=== PATIENT | male | born 1985 | race Two or more races ===

== ENCOUNTER 2020-08-20 20:29 | Inpatient (IN) | payer MEDICAID ==
[~2020-08-20] VITALS: Ht 177.8 cm; Wt 142.5 kg
[2020-08-20] MEDS ORDERED: cefTRIAXone 1GM/50ML D5W 50 ML IV ONE (23:30)
[2020-08-20] MEDS ORDERED: metroNIDAZOLE 500MG/100ML 100 ML IV ONE (23:30)
[2020-08-20] MEDS ORDERED: SODIUM CHLORIDE 0.9% 1,000 ML IV ONE (23:30)
[2020-08-20] MEDS ORDERED: ACETAMINOPHEN 325 MG TAB PO ONE (23:45)
[2020-08-21 00:03] LABS: Hemoglobin 16.5 g/dL (13.5-17.5)
[2020-08-21 00:04] LABS: Basophils # (auto) 0 10 ^3/uL (0-0.2); Basophils % (auto) 0.4 % (0.0-2.0); Eosinophils # (auto) 0 10 ^3/uL (0-0.8); Eosinophils % (auto) 0.2 % (0.0-7.0); Hematocrit 49.7 % (41.0-53.0); Lymphocytes # (auto) 1.8 10 ^3/uL (0.4-5.4); Lymphocytes % (auto) 27.1 % (10.0-50.0); Mean Corpuscular Hemoglobin 27.6 pg (28.0-32.0); Mean Corpuscular Hgb Conc. 33.2 g/dL (32.0-36.0); Mean Corpuscular Volume 83.2 fL (80.0-100.0); Monocytes # (auto) 0.8 10 ^3/uL (0-1.3); Monocytes % (auto) 12.9 % (0.0-12.0); Neutrophils # (auto) 3.9 10 ^3/uL (1.6-8.6); Neutrophils % (auto) 59.4 % (37.0-80.0); Nucleated Red Blood Cells % 0.2 %; Platelet Count (auto) 247 10^3/uL (140-450); Red Blood Cells 5.97 10^6/uL (4.5-5.90); White Blood Cell 6.6 10^3/uL (4.4-10.8)
[2020-08-21 00:07] LABS: Urine Bacteria NONE SEEN /hpf (None Seen); Urine Blood 1+ /uL (Negative); Urine WBC 4 /hpf (0 - 3)
[2020-08-21 00:17] LABS: Alanine Aminotransferase 45 U/L (16-61); Albumin 3.6 g/dL (3.4-5.0); Amylase 52 U/L (25-115); Anion Gap 7 (5-15); Aspartate Aminotransferase 26 U/L (15-37); BUN/Creatinine Ratio 9.5; Blood Urea Nitrogen 10 mg/dL (7-18); Calcium 8.6 mg/dL (8.5-10.1); Carbon Dioxide 26 mmol/L (21-32); Chloride 104 mmol/L (98-107); GFR African American 104 mL/min; GFR Non-African American 86 mL/min; Glucose 85 mg/dL (74-106); Lipase 108 U/L (73-393); Potassium 3.8 mmol/L (3.5-5.1); Sodium 137 mmol/L (136-145)
[2020-08-21 00:24] LABS: Alkaline Phosphatase 124 U/L (45-117); Bilirubin, Total 0.4 mg/dL (0.2-1.0); Total Protein 8.8 g/dL (6.4-8.2)
[2020-08-21] MEDS ORDERED: NITROGLYCERIN 0.4 MG SL TAB SL PRN (01:15)
[2020-08-21] MEDS ORDERED: DexAMETHasone SOD PHOS 4 MG/1ML SDV INJ IV ONE (01:15)
[2020-08-21] MEDS ORDERED: ACETAMINOPHEN 500 MG TAB PO PRN (01:15)
[2020-08-21] MEDS ORDERED: MORPHINE SULF INJ 2 MG/ML SYRINGE 1ML IV PRN (01:15)
[2020-08-21 02:45] VITALS: BP 111/63
--- NOTE | 2020-08-21 02:45 | NUR ---
pt arrived via wheelchair. pt is ambulatory, and transferred self to hospital bed. no s/s of pain or distress.
--- NOTE | 2020-08-21 07:13 | NUR ---
closing note pt resting in right lateral position. no s/s of pain or respiratory distress. endorsed care to day shift RN.
[2020-08-21 07:44] LABS: Basophils # (auto) 0 10 ^3/uL (0-0.2); Basophils % (auto) 0.1 % (0.0-2.0); Eosinophils # (auto) 0 10 ^3/uL (0-0.8); Hemoglobin 15.3 g/dL (13.5-17.5); Lymphocytes % (auto) 17.5 % (10.0-50.0); Mean Corpuscular Hemoglobin 27.2 pg (28.0-32.0); Mean Corpuscular Hgb Conc. 32.5 g/dL (32.0-36.0); Mean Corpuscular Volume 83.6 fL (80.0-100.0); Monocytes # (auto) 0.5 10 ^3/uL (0-1.3); Monocytes % (auto) 8.5 % (0.0-12.0); Neutrophils # (auto) 4.1 10 ^3/uL (1.6-8.6); Neutrophils % (auto) 73.9 % (37.0-80.0); Nucleated Red Blood Cells % 0.1 %; Platelet Count (auto) 223 10^3/uL (140-450); Red Blood Cells 5.62 10^6/uL (4.5-5.90); White Blood Cell 5.5 10^3/uL (4.4-10.8)
[2020-08-21 08:00] VITALS: BP 102/52
[2020-08-21 08:00] LABS: Albumin 3.4 g/dL (3.4-5.0); BUN/Creatinine Ratio 8.4; Calcium 8.4 mg/dL (8.5-10.1); Potassium 4.6 mmol/L (3.5-5.1)
--- NOTE | 2020-08-21 08:00 | NUR ---
Opening Shift Note Assumed care of patient, awake and alertx4. No S/S of distress/SOB, on room air. No pain. Instructed on POC and to call for assist PRN. Bed at lowest locked position and call light within reach. Will continue to monitor for changes Q1hr and PRN.
[2020-08-21 08:03] LABS: Bilirubin, Total 0.4 mg/dL (0.2-1.0); Total Protein 7.9 g/dL (6.4-8.2)
--- NOTE | 2020-08-21 08:27 | NUR ---
Respiratory note: PT IS AWAKE, AND ALERT. NO RESPIRATORY DISTRESS NOTED. SPO2 96% ON RA, HR 88, RR 18, BS CLEAR/DIMINISHED BILATERALLY. NO FURTHER RESPIRATORY INTERVENTIONS INDICATED AT THIS TIME. WILL CONTINUE TO MONITOR PT. CHARTING COMPLETE FROM OUTSIDE OF PT ROOM PER COVID-19 PRECAUTIONS/PROTOCOL.
[2020-08-21] MEDS: AZITHROMYCIN 500MG/ 250ML 250 ML IV SCH (08:38)
[2020-08-21 09:00] VITALS: BP 102/52
--- NOTE | 2020-08-21 09:00 | NUR ---
Bowel Movement Patient had a soft BM, no diarrhea.
[2020-08-21] MEDS: MORPHINE SULF INJ 2 MG/ML SYRINGE 1ML IV PRN ×3 (09:03→22:20)
--- NOTE | 2020-08-21 09:03 | NUR ---
Pain Pain medication given for back and chest pain, 05/17. Will continue to monitor PRN.
--- NOTE | 2020-08-21 09:35 | NUR ---
Pain re-assessment No c/o pain. Patient is comfortably resting.
[2020-08-21] MEDS ORDERED: DexAMETHasone SOD PHOS 4 MG/1ML SDV INJ IV SCH (10:00)
[2020-08-21 13:00] VITALS: BP 124/74
--- NOTE | 2020-08-21 16:37 | NUR ---
Pain Pain medication given for headache, 07/18. Will continue to monitor PRN.
[2020-08-21 17:12] VITALS: BP 121/73
--- NOTE | 2020-08-21 18:39 | NUR ---
Dr. Taveras at bedside, per MD patient is cleared from his perspective.
[2020-08-21 21:53] VITALS: BP 129/80
[2020-08-21] MEDS: DexAMETHasone SOD PHOS 4 MG/1ML SDV INJ IV SCH (22:19)
[2020-08-21] MEDS: ONDANSETRON HCL 4 MG/2 ML VIAL IV PRN (22:20)
[2020-08-22 05:00] VITALS: BP 107/72
[2020-08-22 06:59] LABS: Potassium 4.4 mmol/L (3.5-5.1)
[2020-08-22 07:11] LABS: Basophils # (auto) 0 10 ^3/uL (0-0.2); Eosinophils # (auto) 0 10 ^3/uL (0-0.8); Hematocrit 49.2 % (41.0-53.0); Hemoglobin 16.3 g/dL (13.5-17.5); Lymphocytes # (auto) 1.2 10 ^3/uL (0.4-5.4); Lymphocytes % (auto) 14.7 % (10.0-50.0); Mean Corpuscular Hemoglobin 27.7 pg (28.0-32.0); Mean Corpuscular Hgb Conc. 33.2 g/dL (32.0-36.0); Mean Corpuscular Volume 83.5 fL (80.0-100.0); Monocytes # (auto) 0.6 10 ^3/uL (0-1.3); Monocytes % (auto) 7.6 % (0.0-12.0); Neutrophils # (auto) 6.3 10 ^3/uL (1.6-8.6); Neutrophils % (auto) 77.7 % (37.0-80.0); Nucleated Red Blood Cells % 0.2 %; Platelet Count (auto) 266 10^3/uL (140-450); Red Cell Distribution Width 15.8 % (11.8-14.3); White Blood Cell 8.1 10^3/uL (4.4-10.8)
[2020-08-22 07:23] LABS: Albumin 3.5 g/dL (3.4-5.0); BUN/Creatinine Ratio 11.5; Bilirubin, Total 0.4 mg/dL (0.2-1.0); CRP High Sensitivity 1.03 mg/dL (< 0.3); Magnesium 2.6 mg/dL (1.6-2.6); Total Protein 8.3 g/dL (6.4-8.2)
--- NOTE | 2020-08-22 07:26 | NUR ---
closing note pt resting in semi fowlers with HOB at 30 degrees. no s/s of respiratory distress. pt is on room air. endorsed care to day shift CRISTINA Fuentes.
[2020-08-22 08:00] VITALS: BP 120/63
--- NOTE | 2020-08-22 08:20 | NUR ---
Opening Shift Note Assumed care of patient, awake and alertx4. No S/S of distress/SOB, on room air.Patient c/o headache, 04/17. Instructed on POC and to call for assist PRN. Bed at lowest locked position and call light within reach. Will continue to monitor for changes Q1hr and PRN.
[2020-08-22] MEDS: DexAMETHasone SOD PHOS 4 MG/1ML SDV INJ IV SCH (08:31)
[2020-08-22] MEDS: AZITHROMYCIN 500MG/ 250ML 250 ML IV SCH (08:32)
[2020-08-22] MEDS: MORPHINE SULF INJ 2 MG/ML SYRINGE 1ML IV PRN (08:34)
--- NOTE | 2020-08-22 08:50 | NUR ---
Pain Pain medication given for headache, 05/17. Will continue to monitor PRN.
[2020-08-22 09:00] VITALS: BP 120/63
[2020-08-22] MEDS ORDERED: ENOXAPARIN SOD 40 MG/0.4 ML SYRINGE SC SCH (10:00)
[2020-08-22] MEDS ORDERED: ZINC SULFATE 220mg CAP or TAB PO SCH (10:00)
[2020-08-22] MEDS ORDERED: ASCORBIC ACID 500 MG TAB PO SCH (10:00)
[2020-08-22] MEDS ORDERED: PANTOPRAZOLE 40 MG TAB PO SCH (10:00)
[2020-08-22] MEDS ORDERED: CHOLECALCIFEROL (VITD3) 1,000UNIT=25mCg TAB PO SCH (10:00)
--- NOTE | 2020-08-22 10:51 | NUR ---
Patient is c/o feeling nauseous and weak. VS: BP140/84, HR 82bpm, RR 18. Patient is alert and oriented. Will continue to monitor PRN.
--- NOTE | 2020-08-22 10:52 | NUR ---
Paged [employer] Lucio Basilio, regarding patient's [facility] lab. requesting orders for Bilateral lower leg US, as patient is c/o left leg pain.
[2020-08-22] MEDS: ONDANSETRON HCL 4 MG/2 ML VIAL IV PRN (11:00)
[2020-08-22 13:02] VITALS: BP 116/76
[2020-08-22 15:43] VITALS: BP 120/63
--- NOTE | 2020-08-22 17:01 | NUR ---
Discharge instructions given as ordered. Encourage to follow up with PMD as instructed. All questions and concerns addressed. Patient verbalized understanding. Medication reconciliation form completed and copy given to patient. IV removed with catheter intact, pressure dressing applied, telemetry unit returned to ICU. Patient ambulated with all personal belongings, accompanied by security and EVS staff. No distress noted at time of departure.
== END 2020-08-22 17:00 | disposition home or self-care (01) | DRG 137 ==
LOC: ER 20:36 → TELE 20:37 → TELE-EAST 08-21 02:51
PROVIDERS: ADMIT Internal Medicine; ATTEND Internal Medicine
DX: U07.1 COVID-19 (principal); J12.89 Other viral pneumonia; E66.01 Morbid (severe) obesity due to excess calories; Z68.42 Body mass index [BMI] 45.0-49.9, adult
CPT/HCPCS: 36415; 71045; 80053; 81001; 82150; 82728; 83615; 83690; 83735; 84484; 85025; 85379; 86141; 87040; 87426; 93970; 96365; 96368; 96375; G0378; J0696; J1100; J2405; J3490